=== PATIENT | female | born 1950 | race Caucasian/White ===

== ENCOUNTER 2018-04-28 08:00 | Inpatient (IN) | payer OTHER ==
[2018-04-01 17:08] VITALS: BMI 35.6
--- NOTE | 2018-05-05 07:56 | HP ---
Satellite [facility] - Chief Complaint Chief Complaint: left knee pain - Past Medical History Allergies/Adverse Reactions: Allergies Allergy/AdvReac Type Severity Reaction Status Date / Time No Known Allergies Allergy Verified 04/01/18 17:11 ...LMP: 04/29/95 - Current Medications Current Medications: Home Medications Medication Instructions Recorded Esomeprazole Mag Trihydrate 40 mg PO DAILY #30 capsule.ec 07/05/13 [Nexium] Gabapentin [Neurontin -] 400 mg PO HS 02/03/16 Naltrexone HCl 50 mg PO DAILY 02/03/16 Paroxetine HCl [Paxil -] 30 mg PO DAILY 02/03/16 Atorvastatin Ca [Lipitor] 20 mg PO DAILY 04/01/18 Hydroxyvine 50 mg PO HS 04/01/18 Satellite Physical Exam - Physical Examination General Appearance: Well Nourished, Well Developed, Alert & Oriented x3 ENT: Clear Lung: Normal air movement Heart: Regular rate & rhythm Extremities: Other (left knee- + Swelling, + ttp, decr rom, nvi xrays show grade 4 tricompartmental djd) Neurological: Intact, Alert, Oriented Satellite Impression/Plan - Impression/Plan Impression: left knee djd Operative Procedure: left cherry tkr Date to be Performed: 05/05/18
[2018-05-05] MEDS ORDERED: GABAPENTIN 300 MG CAPSULE (FP) PO ONE (09:59)
[2018-05-05] MEDS ORDERED: CEFAZOLIN 2 GM in DEXTROSE 5%-WATER - 50 ML IVPB ONE (09:59)
[2018-05-05] MEDS ORDERED: oxyCODONE HCL 10 MG SUSTAINED ACTING TABLET PO ONE (09:59)
[2018-05-05] MEDS ORDERED: TRANEXAMIC ACID 1000 MG/10 ML VIAL IVPUSH ONE (09:59)
[2018-05-05] MEDS ORDERED: CELECOXIB 200 MG CAPSULE PO ONE (09:59)
[2018-05-05] MEDS ORDERED: MIDAZOLAM HCL 2 MG/2 ML SINGLE DOSE VIAL ONE ×3 (11:45→12:51)
[2018-05-05] MEDS ORDERED: BUPIVACAINE HCL/PF 2.5 MG/ML - 30 ML VIAL IJ ONE (11:46)
[2018-05-05] MEDS ORDERED: BUPIVACAINE LIPOSOME/PF (EXPAREL) 266 MG/20 ML VIAL ONE (11:46)
[2018-05-05] MEDS ORDERED: VANCOMYCIN 1,000 MG VIAL (RESTRICTED TO ID ONLY) ONE (11:47)
[2018-05-05] MEDS ORDERED: ceFAZolin SODIUM 1 GM VIAL ONE ×2 (12:04→12:43)
[2018-05-05] MEDS ORDERED: BUPIVACAINE HCL/PF 0.5% (5MG/ML) 10 ML VIAL ONE (12:17)
[2018-05-05] MEDS ORDERED: TRANEXAMIC ACID 1000 MG/10 ML VIAL ONE (12:43)
[2018-05-05] MEDS ORDERED: ONDANSETRON 4 MG/2 ML VIAL ONE (12:43)
[2018-05-05] MEDS ORDERED: DEXAMETHASONE SOD PHOSPHATE 4 MG/1 ML VIAL ONE (12:43)
[2018-05-05] MEDS ORDERED: LIDOCAINE HCL/PF 2% SDV 5ML VIAL ONE (12:43)
[2018-05-05] MEDS ORDERED: ePHEDrine SULFATE 50 MG/1 ML AMPULE ONE (12:48)
[2018-05-05] MEDS ORDERED: VANCOMYCIN 1,000 MG VIAL (RESTRICTED TO ID ONLY) IVPB ONE (13:20)
[2018-05-05] MEDS ORDERED: MAG HYDROX/AL HYDROX/SIMETH 30 ML UNIT-DOSE CUP PO PRN (14:38)
[2018-05-05] MEDS ORDERED: ONDANSETRON 4 MG/2 ML VIAL IVPUSH PRN ×2 (14:38→14:56)
[2018-05-05] MEDS ORDERED: MAGNESIUM HYDROX 2400MG/30ML ORAL SUSPENSION 30 ML CUP PO PRN (14:38)
--- NOTE | 2018-05-05 14:40 | OP ---
Operative Note - Note: Operative Date: 05/05/18 (lc) Pre-Operative Diagnosis: left knee djd Operation: left cherry tkr Post-Operative Diagnosis: Same as Pre-op Surgeon: Miguel Gamez Surgical Orderly: Conner Chua Anesthesiologist/FIRE CONTROL TECHNICIAN B: Constantino Cramer Anesthesia: Spinal, Local Specimens Removed: bone fragments Estimated Blood Loss (mls): 100 Operative Report Dictated: Yes
[2018-05-05] MEDS ORDERED: LACTATED RINGERS SOLUTION 1,000 ML IV SCH (14:45)
[2018-05-05] MEDS ORDERED: oxyCODONE HCL 5 MG TABLET PO PRN (14:56)
[2018-05-05] MEDS ORDERED: PROMETHAZINE HCL 25 MG/1 ML VIAL IVPUSH PRN (14:56)
[2018-05-05] MEDS ORDERED: ACETAMINOPHEN 325 MG TABLET (FP) PO ONE (15:00)
[2018-05-05] MEDS ORDERED: ACETAMINOPHEN 325 MG TABLET (FP) ONE (15:23)
[2018-05-05] MEDS: oxyCODONE HCL 5 MG TABLET PO PRN (20:39)
[2018-05-05] MEDS: CEFAZOLIN 2 GM/D5W 2 GM/50 ML ML IVPB SCH (20:39)
[2018-05-05] MEDS ORDERED: PATIENT'S OWN MEDICATION (NON-FORMULARY) (Hydroxyzine Hcl [Hydroxyzine Hcl] 50 MG) PO SCH (22:00)
[2018-05-05] MEDS: ACETAMINOPHEN 325 MG TABLET (FP) PO SCH (22:05)
[2018-05-05] MEDS: hydrOXYzine HCL 25 MG TABLET (FP) PO SCH (22:06)
[2018-05-05] MEDS: oxyCODONE HCL 10 MG SUSTAINED ACTING TABLET PO SCH (22:06)
[2018-05-05] MEDS: GABAPENTIN 400 MG CAPSULE (FP) PO SCH (22:06)
[2018-05-05] MEDS: SENNOSIDES/DOCUSATE COMBO (SENNA PLUS) TABLET (UD) PO SCH (22:06)
[2018-05-06] MEDS: CEFAZOLIN 2 GM/D5W 2 GM/50 ML ML IVPB SCH (04:14)
[2018-05-06] MEDS: ACETAMINOPHEN 325 MG TABLET (FP) PO SCH ×4 (04:15→21:45)
--- NOTE | 2018-05-06 06:30 | OP ---
DATE OF OPERATION: 05/05/2018 PREOPERATIVE DIAGNOSIS: Degenerative joint disease, left knee. POSTOPERATIVE DIAGNOSIS: Degenerative joint disease, left knee. PROCEDURE: Left total knee replacement with robotic assisted navigation (Makoplasty) and removal of bone ailyn. SURGEON ATTENDING: Miguel Gamez M.D. WORKERS' COMPENSATION MAGISTRATE: Jonas Mercer ANESTHESIA: Regional and spinal. CLOSURE: A Triathlon knee system with a cemented 5 femur, 5 tibia with 100 mm stem, a 9 TS implant and a 32 mm patella, a number 1 Vicryl for fascia, 0 and 2-0 subcutaneous, 3-0 Monocryl subcuticular, skin glue for skin, 4-0 undyed Vicryl for pin sites. ESTIMATED BLOOD LOSS: Less than 100 mL. COMPLICATIONS: None. CONDITION: To recovery room in stable condition. INDICATION FOR OPERATIVE PROCEDURE: The patient is a 68-year-old female who was suffering from severe DJD of her left knee. Her past medical history was significant for significant leg length discrepancy with the left side being greater than the right. She also had over 50 years ago a proximal tibial epiphysiodesis in order to try to equal her limb length, which was partially successful. She still was left significant leg length discrepancy. Arthritis got to the point that she was suffering from too much pain and required operative intervention. Patient did have an anterior medial proximal tibial scar from her medial ailyn, and she had a way lateral scar from her lateral ailyn. Patient and family were informed of possible increase in complications due to the fact that she had previous incisions around the knee and previous surgery around the knee, also that we would try to remove the ailyn if possible, but we may leave some in situ if necessary. Extra instrumentation may be needed for these because of the pins, and due to leg length discrepancy, extra stability component may be necessary in the knee. Patient and family understand and would like to proceed. DESCRIPTION OF PROCEDURE: Patient taken to operating room on May 05, 2018. Regional and spinal anesthesia was administered by the anesthesiologist. IV Kefzol administered prophylactically prior to the case. Well-padded pneumatic tourniquet was placed on the left proximal thigh. The left lower extremity was prepped and draped in the usual sterile fashion. A straight midline standard incision was made, and I believe this left us with enough gaps between the medial and lateral incisions to have a sufficient bridge not to have skin necrosis, especially due to the fact that the previous incisions were many, many years ago. Full thickness incision was taken down to the level of the extensor mechanism with sufficient flaps medially and laterally to perform the procedure. A medial parapatellar arthrotomy was then performed, inverting the patella and flexing the knee up. Subperiosteal dissection was done on the anterior and medial proximal tibia until the knee was able to be brought forward, this was facilitated by taking the ACL, PCL and the medial and lateral menisci. Checkpoints were malleted in both the femur and the tibia, 2 parallel threaded pins were drilled proximal to medial femoral condyle and angled posteriorly distally and to this was fastened the femoral arrays for navigation. Through two small stab incisions distally, 2 pins were placed in the tibia as well through the anterior cortex but up until but not through the posterior cortex. To these pins a tibial navigation array was applied. Knee was registered with the navigation device with range of motion of the hip, medial and lateral malleoli and multiple points of both the femur and the tibia. Excellent registration was confirmed by "popping the bubbles." Osteophytes were all removed circumferentially. The knee was tensioned in flexion and extension and to varus and valgus stress. The virtual component position was optimized to equal our gaps both in flexion and in extension. Once the ideal positions of the virtual components was obtained, the robot was brought onto the field and was registered. Robot was used cut the bone as was planned on both the femur and on the tibia. The gaps were measured in extension and flexion and found to be equal. The box was then cut on the femur. Up until this point we left the tibial ailyn in place. However, while trying to make the keel, the ailyn got in the way. After drilling we found most of the ailyn, and we were able to remove them into the intramedullary canal through the cortices. Due to numerous holes in the tibial cortex, it was deemed necessary to add a stem to the tibial component for adjuvant fixation, and this was reamed distally as well. The knee was pulse antibiotic irrigated. The real components were then cemented in using modern generation cement techniques and antibiotic cement. The real 9 polyethylene liner was then applied. Patient had excellent stability throughout range of motion and flexion. The patella was calibered for thickness and osteotomized at the appropriate level. The lollipops were used to drill the 3 lugholes and a medializing patella trial was applied. Excellent range of motion, tracking of the patella was obtained. Real patella was then cemented in using modern generation cement techniques and antibiotic cement. The knee was thoroughly inspected to remove all excess cement. It was then pulse antibiotic irrigated copiously. The check points and the arrays were removed. Vancomycin powder was placed into the incision. The medial parapatellar arthrotomy was then closed using number 1 Vicryl interrupted suture. Again taken through range of motion, found excellent stability and excellent tracking of the patella. Subcutaneous was pulse antibiotic irrigated and then closed in 0 and 2-0 Vicryl and 3-0 nylon for the skin, 4-0 undyed Vicryl for pin sites after it was pulse antibiotic irrigated as well. Sterile pressure dressing was applied. Patient was awakened from anesthesia and transferred to recovery in stable condition. Estimated blood loss was approximately 100 mL. Tourniquet was only inflated when we cemented, a period of approximately 20 minutes and then was deflated. Sterile pressure dressing was applied. Patient awakened from anesthesia and transferred to recovery in stable condition. No complications. Estimated blood loss negligible. Hany [id number]
[2018-05-06] MEDS: oxyCODONE HCL 5 MG TABLET PO PRN ×2 (08:13→16:30)
[2018-05-06] MEDS: ASPIRIN 325 MG TABLET PO SCH (08:13)
[2018-05-06 09:04] LABS: HEMATOCRIT 32.7 % (32.4-45.2); HEMOGLOBIN 10.9 GM/dl (10.7-15.3); MCH 30.1 pg (25.7-33.7); MCHC 33.2 g/dl (32.0-36.0); MEAN CELL VOLUME 90.6 fl (80-96); MEAN PLT VOLUME 8.3 fl (7.5-11.1); PLATELET COUNT 314 K/MM3 (134-434); RBC 3.61 M/mm3 (3.60-5.2); RDW 14.1 % (11.6-15.6); WHITE BLOOD COUNT 10.1 K/mm3 (4.0-10.8)
[2018-05-06] MEDS: PANTOPRAZOLE 40 MG TABLET (FP) PO SCH (09:29)
[2018-05-06] MEDS: ATORVASTATIN CA 20 MG TABLET (FP) PO SCH (09:29)
[2018-05-06] MEDS: oxyCODONE HCL 10 MG SUSTAINED ACTING TABLET PO SCH ×2 (09:30→21:46)
[2018-05-06] MEDS: MULTIVITAMINS (DAILY MVI) TABLET (FP) PO SCH (09:30)
[2018-05-06] MEDS: PARoxetine HCL 20 MG TABLET (FP) PO SCH (09:30)
[2018-05-06] MEDS: SENNOSIDES/DOCUSATE COMBO (SENNA PLUS) TABLET (UD) PO SCH ×2 (09:30→21:45)
--- NOTE | 2018-05-06 09:35 | PN ---
Progress Note (short form) - Note Progress Note: Ortho Pt seen and examined s/p left cherry tkr pod #1 Selected Entries 05/06/18 06:00 Temperature 98.2 F Pulse Rate 66 Respiratory 20 Rate Blood Pressure 112/51 Laboratory Tests 05/06/18 07:25 WBC 10.1 Hgb 10.9 Hct 32.7 Plt Count 314 dressing c/d/i, rom 0-40, calf soft, nt nvi a/p PT dvt ppx pain control d/c home tomorrow if stable
[2018-05-06] MEDS ORDERED: PATIENT'S OWN MEDICATION (NON-FORMULARY) (Esomeprazole Mag Trihydrate [Nexium] 40 MG) PO SCH (10:00)
--- NOTE | 2018-05-06 13:21 | PN ---
Progress Note (short form) - Note Progress Note: 68F POD1 s/p L TKR under spinal anesthetic with peripheral nerve blocks for post operative pain relief. Pt states that pain is well controlled and reports no anesthetic complications. AVSS. Motor and sensory function intact in bilateral lower extremities. Continue current regimen.
[2018-05-06] MEDS: hydrOXYzine HCL 25 MG TABLET (FP) PO SCH (21:46)
[2018-05-06] MEDS: GABAPENTIN 400 MG CAPSULE (FP) PO SCH (21:46)
[2018-05-07] MEDS: ACETAMINOPHEN 325 MG TABLET (FP) PO SCH ×2 (04:05→10:00)
[2018-05-07] MEDS: oxyCODONE HCL 5 MG TABLET PO PRN ×2 (06:15→11:07)
[2018-05-07 06:44] VITALS: BP 103/55; PULSE 70; TEMP 208.2
[2018-05-07] MEDS: ASPIRIN 325 MG TABLET PO SCH (08:00)
--- NOTE | 2018-05-07 08:18 | DS ---
Physical Examination Vital Signs: Vital Signs Temperature 208.2 F H 05/07/18 06:00 Pulse Rate 70 05/07/18 06:00 Respiratory Rate 18 05/07/18 06:00 Blood Pressure 103/55 05/07/18 06:00 O2 Sat by Pulse Oximetry (%) 100 05/07/18 06:00 Discharge Summary Reason For Visit: OSTEOARTHRITIS Procedures: Principal: left tkr Hospital Course: admitted for elective left cherry tkr, uneventful post-op, stable for d/c Condition: Good - Instructions Diet, Activity, Other Instructions: Post-op Instructions-Total Knee Replacement Call the office for a follow-up appointment in 1 week - [phone] Aspirin 325mg daily for 6 weeks. Pain medication was sent into your pharmacy. Apply Graduated Compression Stockings (TEDs) to both lower extremities- remove daily for hygiene ONLY Apply Sequential Compression Device (SCDs) to both Lower extremities remove for PT and hygiene ONLY Apply cold packs to affected area for 15 minutes every 2 hours. Physical Therapist will come to your home for the first 5 days. You will be set up with outpatient PT at your first post-operative visit. Patient may ambulate as tolerated-encourage self care (at least every 2-3 hours while awake) with walker or cane Maintain Aquacel (waterproof) dressing to operative wound (will be removed by surgeon at first office visit) Shower with Aquacel dressing in place-if Aquacel integrity compromised, remove and apply dry sterile dressing and notify Orthopedist. DO NOT SHOWER unless Orthopedists approves without Aquacel dressing CONTACT THE OFFICE FOR ANY CHANGE IN YOUR CONDITION (for example-fever greater than 102 degrees, excessive bleeding from operative site, purulent drainage, severe swelling or pain) GO TO THE EMERGENCY ROOM IF THERE IS A MEDICAL EMERGENCY Knee Precautions: * Keep a rolled towel under affected heel while in bed or chair (to keep knee in extension) * Keep affected leg elevated except during mealtimes * DO NOT PLACE PILLOW UNDER AFFECTED KNEE * If you have any questions, please do not hesitate to call the office - [phone]. Referrals: Miguel Gamez MD [Staff Physician] - Disposition: VNS/HOME HEALTH CARE - Home Medications Comprehensive Discharge Medication List: Ambulatory Orders Esomeprazole Mag Trihydrate [Nexium] 40 mg PO DAILY #30 capsule.ec 07/05/13 Gabapentin [Neurontin -] 400 mg PO HS 02/03/16 Naltrexone HCl 50 mg PO DAILY 02/03/16 Paroxetine HCl [Paxil -] 30 mg PO DAILY 02/03/16 Atorvastatin Ca [Lipitor] 20 mg PO DAILY 04/01/18 Hydroxyzine HCl 50 mg PO HS 04/01/18
--- NOTE | 2018-05-07 08:18 | PN ---
Progress Note (short form) - Note Progress Note: Ortho Pt seen and examined s/p left cherry tkr pod #2 Selected Entries 05/06/18 05/07/18 22:00 06:00 Temperature 98.0 F Pulse Rate 70 Respiratory 18 Rate Blood Pressure 103/55 Laboratory Tests 05/07/18 07:30 WBC Pending Hgb Pending Hct Pending Plt Count Pending dressing c/d/i, rom 0-60, calf soft, nt nvi a/p PT dvt ppx pain control d/c home today f/u in 1 week
[2018-05-07 09:15] LABS: HEMATOCRIT 29.4 % (32.4-45.2); HEMOGLOBIN 9.8 GM/dl (10.7-15.3); MCH 30.2 pg (25.7-33.7); MCHC 33.3 g/dl (32.0-36.0); MEAN CELL VOLUME 90.7 fl (80-96); MEAN PLT VOLUME 8.4 fl (7.5-11.1); PLATELET COUNT 281 K/MM3 (134-434); RBC 3.24 M/mm3 (3.60-5.2); WHITE BLOOD COUNT 7.3 K/mm3 (4.0-10.8)
[2018-05-07] MEDS: ATORVASTATIN CA 20 MG TABLET (FP) PO SCH (10:04)
[2018-05-07] MEDS: PARoxetine HCL 20 MG TABLET (FP) PO SCH (10:05)
[2018-05-07] MEDS: SENNOSIDES/DOCUSATE COMBO (SENNA PLUS) TABLET (UD) PO SCH (10:05)
[2018-05-07] MEDS: oxyCODONE HCL 10 MG SUSTAINED ACTING TABLET PO SCH (10:05)
[2018-05-07] MEDS: MULTIVITAMINS (DAILY MVI) TABLET (FP) PO SCH (10:06)
[2018-05-07] MEDS: PANTOPRAZOLE 40 MG TABLET (FP) PO SCH (10:06)
--- NOTE | 2018-05-20 07:20 | PATH ---
Surgical Pathology Report Patient Name: GEORGIANA FAN Med. Rec. #: [id number] /Age/Gender: 1950 (Age: 68) / F Account: [id number] Location: [facility] MED-SURG Taken: 05/05/2018 Received: 05/05/2018 Reported: 05/07/2018 Physicians: Miguel Gamez M.D. Specimen(s) Received A: LEFT KNEE BONE B: LEFT KNEE HARDWARE Clinical History Left knee osteoarthritis Final Diagnosis A. KNEE BONE, LEFT, TOTAL KNEE REPLACEMENT: DEGENERATIVE JOINT DISEASE. B. HARDWARE, LEFT KNEE, REMOVAL: HARDWARE, DESCRIBED (GROSS EXAMINATION ONLY). Electronically Signed Edie Lino M.D. Gross Description A. Received in formalin labeled "left knee bone," is a 13.0 x 10.5 x 2.3 cm aggregate of multiple portions of bone and soft tissue. The tibial plateau measures 7.2 x 5.5 x 1.7 cm. No discrete areas of eburnation are identified. The articular surfaces are renteria-brown and diffusely granular. The underlying trabecular bone is yellow and hard. Diesel Technician Mechanic sections are submitted in one cassette, following decalcification. B. Received fresh labeled "left knee hardware," are 4 marie metallic portions of hardware averaging 2.0 cm in greatest dimension. No soft tissue is present. No sections are submitted, gross only. 05/06/2018 saudi05/06/2018
== END 2018-05-07 14:05 | disposition home health service (06) | DRG 470 ==
LOC: FM/S 05-05 09:44
PROVIDERS: ADMIT Orthopaedic Surgery; ATTEND Orthopaedic Surgery
PROC: 8E0Y0CZ Robotic Assisted Procedure of Lower Extremity, Open Approach (ICD-10-PCS; 2018-05-05)
PROC: 0SRD0J9 Replacement of Left Knee Joint with Synthetic Substitute, Cemented, Open Approach (ICD-10-PCS; principal; 2018-05-05 12:57)
DX: M17.12 Unilateral primary osteoarthritis, left knee (principal)
CPT/HCPCS: 36415; 73560-TC-LT-FY; 85027; 88300-TC; 88304-TC; 88311-TC; 94760; 97116-GP; 97162-GP

== ENCOUNTER 2021-12-20 06:10 | Day surgery (SDC) | payer OTHER ==
[2021-12-18 09:32] VITALS: BMI 31.1
[2021-12-20] MEDS: PHENYLEPHRINE 2.5% OPHTH SOLN 15 ML BOTTLE ONE ×3 (06:45→06:55)
[2021-12-20] MEDS: TROPICAMIDE 1% OPHTH SOLN 15 ML BOTTLE ONE ×3 (06:45→06:55)
[2021-12-20] MEDS: CYCLOPENTOLATE 2% OPHTH SOLN 2 ML BOTTLE ONE ×3 (06:45→06:55)
[2021-12-20] MEDS: CIPROFLOXACIN 0.3% EYE DROPS 5 ML BOTTLE ONE ×3 (06:45→06:55)
[2021-12-20] MEDS ORDERED: MIDAZOLAM HCL 2 MG/2 ML SINGLE DOSE VIAL ONE (06:56)
[2021-12-20] MEDS ORDERED: LIDOCAINE 1% P/F 10 MG/ML VIAL ONE (07:16)
[2021-12-20] MEDS ORDERED: CARBACHOL 0.01% INTRA-OCULAR 1.5 ML VIAL ONE (07:17)
[2021-12-20] MEDS ORDERED: NEO/POLYMYX B SULF/DEXAMETH OPHTHALMIC 5ML BOTTLE ONE (07:17)
[2021-12-20] MEDS ORDERED: BSS (NA/CA/MG/K) BALANCED SALT SOLUTION OPHTH SOLN 15 ML BOTTLE ONE (07:17)
[2021-12-20] MEDS ORDERED: TETRACAINE 0.5% OPHTH SOLN 2 ML BOTTLE ONE (07:17)
[2021-12-20 08:19] VITALS: TEMP 98.4
[2021-12-20 08:46] VITALS: BP 104/60; PULSE 78
== END 2021-12-20 09:05 | disposition home or self-care (01) ==
LOC: FASU 06:10
PROVIDERS: ATTEND Ophthalmology
PROC: 08RJ3JZ Replacement of Right Lens with Synthetic Substitute, Percutaneous Approach (ICD-10-PCS; principal; 2021-12-20 07:46)
DX: H26.8 Other specified cataract (principal)

== ENCOUNTER 2022-01-16 08:44 | Day surgery (SDC) | payer OTHER ==
[2022-01-15 09:05] VITALS: BMI 31.1
[2022-01-16] MEDS ORDERED: TROPICAMIDE 1% OPHTH SOLN 15 ML BOTTLE ONE (08:54)
[2022-01-16] MEDS ORDERED: CIPROFLOXACIN 0.3% EYE DROPS 5 ML BOTTLE ONE (08:54)
[2022-01-16] MEDS ORDERED: CYCLOPENTOLATE 2% OPHTH SOLN 2 ML BOTTLE ONE (08:54)
[2022-01-16] MEDS ORDERED: PHENYLEPHRINE 2.5% OPHTH SOLN 15 ML BOTTLE ONE (08:54)
[2022-01-16] MEDS ORDERED: CIPROFLOXACIN HCL 0.3% OPHTH 2.5ML BOTTLE OS ONE ×3 (09:05→09:15)
[2022-01-16] MEDS ORDERED: TROPICAMIDE 1% OPHTH SOLN 15 ML BOTTLE OS ONE ×3 (09:05→09:15)
[2022-01-16] MEDS ORDERED: CYCLOPENTOLATE 2% OPHTH SOLN 2 ML BOTTLE OS ONE ×3 (09:05→09:15)
[2022-01-16] MEDS ORDERED: PHENYLEPHRINE 2.5% OPHTH SOLN 15 ML BOTTLE OS ONE ×3 (09:05→09:15)
[2022-01-16 09:10] VITALS: TEMP 97.6
[2022-01-16] MEDS ORDERED: MIDAZOLAM HCL 2 MG/2 ML SINGLE DOSE VIAL ONE (09:53)
[2022-01-16] MEDS ORDERED: TETRACAINE 0.5% OPHTH SOLN 2 ML BOTTLE ONE (10:24)
[2022-01-16] MEDS ORDERED: CARBACHOL 0.01% INTRA-OCULAR 1.5 ML VIAL ONE (10:24)
[2022-01-16] MEDS ORDERED: LIDOCAINE 1% P/F 10 MG/ML VIAL ONE (10:24)
[2022-01-16] MEDS ORDERED: NEO/POLYMYX B SULF/DEXAMETH OPHTHALMIC 5ML BOTTLE ONE (10:24)
[2022-01-16] MEDS ORDERED: BSS (NA/CA/MG/K) BALANCED SALT SOLUTION OPHTH SOLN 15 ML BOTTLE ONE (10:24)
[2022-01-16 11:45] VITALS: BP 104/57; PULSE 82
== END 2022-01-16 12:10 | disposition home or self-care (01) ==
LOC: FASU 08:44
PROVIDERS: ATTEND Ophthalmology
PROC: 08RK3JZ Replacement of Left Lens with Synthetic Substitute, Percutaneous Approach (ICD-10-PCS; principal; 2022-01-16 10:33)
DX: H26.8 Other specified cataract (principal)
CPT/HCPCS: 66984; V2632